=== PATIENT | male | born 1990 | race Caucasian/White ===

== ENCOUNTER 2020-03-24 06:03 | Day surgery (SDC) | payer OTHER, SELFPAY ==
--- NOTE | 2020-03-20 16:49 | NUR ---
P.T. NOTES COMMUNICATED W/ MARCO CAT, Pt FOR SURGERY ON 03/24/20, ORTHO ORDERED HINGED KNEE BRACE, RN TO FF UP.
--- NOTE | 2020-03-21 15:50 | NUR ---
CALL FROM DR RAMIRES. PT HAD LAB WORK DONE AT [facility] 03-20-20. SPECIMEN WAS MISPLACED. ORDERS RECEIVED FOR PT TO COME TO [facility] [place] 03-22-20 0800 FOR PREOP CBC, BMP. WILL CALL PT. ORDERS TAKEN TO ADMITTING.
[2020-03-22 09:28] LABS: microscopic required? NO
[2020-03-22 09:32] LABS: PLATELET COUNT 193 x10^3mcL (130-400); RED CELL DISTRIBUTION WIDTH 12.3 % (11.5-14.5)
[2020-03-22 09:35] LABS: urine erythrocyte NEGATIVE (NEGATIVE)
[2020-03-22 09:57] LABS: CALCIUM 8.8 mg/dL (8.5-10.1); CARBON DIOXIDE 27.2 mmol/L (21-32); CHLORIDE SERUM 101 mmol/L (98-107); CREATININE SERUM 0.9 mg/dL (0.7-1.3); GFR1 > 60 mL/min; GLUCOSE SERUM 91 mg/dL (74-106); SODIUM SERUM 138 mmol/L (136-145)
[~2020-03-24] VITALS: Ht 165.1 cm; Wt 77.1 kg
[2020-03-24 06:17] VITALS: BP 139/98
[2020-03-24 17:24] VITALS: BP 126/80
--- NOTE | 2020-03-25 07:41 | NUR ---
PHYSICAL THERAPY NOTE DR. RAMIRES AND EVAN RN REQUESTED FOR POST-OP CRUTCHES INDICATED IN THE NURSING ORDER. CRUTCHES FIT AND TRAINING PROVISED.GOOD RETURN DEMONSTRATION. PATIENT TO BE D/C FROM OUT-PATIENT.
== END 2020-03-24 16:10 | disposition home or self-care (01) ==
LOC: DS 06:03 → OR 07:30 → DS 16:10
PROVIDERS: ATTEND Neuromusculoskeletal Medicine, Sports Medicine
DX: S83.512A Sprain of anterior cruciate ligament of left knee, initial encounter (principal); S83.282A Other tear of lateral meniscus, current injury, left knee, initial encounter; M65.862 Other synovitis and tenosynovitis, left lower leg; Z88.0 Allergy status to penicillin; Z11.59 Encounter for screening for other viral diseases; X58.XXXA Exposure to other specified factors, initial encounter; Y93.89 Activity, other specified; Y92.89 Other specified places as the place of occurrence of the external cause; Y99.8 Other external cause status
CPT/HCPCS: 97116-GP; J0330; J0690; J1170; J1885; J2405; J2704; J2710; J3490; J7120; U0003-CS